=== PATIENT | male | born 1980 | race Caucasian/White ===

== ENCOUNTER → 2021-04-24 | Outpatient (CLI) | payer OTHER ==
[~2021-04-24] MED LIST: NONE PER PT
== END | disposition home or self-care (01) ==
LOC: STAR 14:51
PROVIDERS: ATTEND Surgery
DX: Z20.822 Contact with and (suspected) exposure to COVID-19 (principal); K40.90 Unilateral inguinal hernia, without obstruction or gangrene, not specified as recurrent
CPT/HCPCS: U0003; U0005

== ENCOUNTER 2021-04-30 09:20 | Day surgery (SDC) | payer OTHER ==
[~2021-04-30] VITALS: Ht 193 cm; Wt 120.6 kg
[~2021-04-30 09:20] MED LIST changes: +BUPIVACAINE/PF 0.5% ONE; +EPINEPHRINE 1 MG/ML, 1ML ONE
[2021-04-30] MEDS ORDERED: no home meds per pt (09:43)
[2021-04-30 09:45] VITALS: BP 145/91
[2021-04-30] MEDS ORDERED: CHLORHEXIDINE 15 ML UDC ONE (09:46)
[2021-04-30] MEDS ORDERED: CHLORHEXIDINE 15 ML UDC PO ONE (10:00)
[2021-04-30] MEDS ORDERED: LACTATED RINGERS 1,000 ML IV SCH (10:00)
[2021-04-30] MEDS ORDERED: MIDAZOLAM 1 MG/ML, 2ML ONE (10:32)
[2021-04-30] MEDS ORDERED: FENTANYL PF 250 MCG/5ML ONE (10:33)
[2021-04-30] MEDS ORDERED: SUGAMMADEX 200 MG/2 ML IVPush ONE (10:36)
[2021-04-30] MEDS ORDERED: PROPOFOL 10 MG/ML, 20ML ONE (11:41)
[2021-04-30] MEDS ORDERED: ROCURONIUM 10 MG/ML,10ML ONE (11:41)
[2021-04-30] MEDS ORDERED: DEXAMETHASONE 4 MG/ML, 1ML ONE (11:41)
[2021-04-30] MEDS ORDERED: ONDANSETRON 2MG/ML, 2ML ONE (11:41)
[2021-04-30] MEDS ORDERED: KETOROLAC 30 MG/1 ML ONE (11:41)
[2021-04-30] MEDS ORDERED: GLYCOPYRROLATE 0.2MG/1ML, 5ML ONE (11:41)
[2021-04-30] MEDS ORDERED: CEFAZOLIN 1,000 MG ONE (11:41)
[2021-04-30] MEDS ORDERED: NEOSTIGMINE 1 MG/ML, 10ML ONE (11:41)
[2021-04-30] MEDS ORDERED: MIDAZOLAM 1 MG/ML, 2ML IV PRN (12:30)
[2021-04-30] MEDS ORDERED: LABETALOL 5MG/ML, 20ML IV PRN (12:30)
[2021-04-30] MEDS ORDERED: PROMETHAZINE 25 MG/ML, 1ML IVPush PRN (12:30)
[2021-04-30] MEDS ORDERED: HYDROmorphone 1 MG/ML, 1ML INJ IVPush PRN (12:30)
[2021-04-30] MEDS ORDERED: FENTANYL PF 100 MCG/2ML IV PRN (12:30)
[2021-04-30] MEDS ORDERED: MEPERIDINE/PF 25MG/0.5ML IVPush PRN (12:30)
[2021-04-30] MEDS ORDERED: OXYcodone 5 MG/5 ML ORAL.SOL UDC PO PRN (12:30)
[2021-04-30] MEDS ORDERED: ALBUTEROL SULFATE 2.5 MG/3 ML NPPB PRN (12:30)
[2021-04-30] MEDS ORDERED: ACETAMINOPHEN 325 MG TABLET PO PRN (12:30)
[2021-04-30] MEDS ORDERED: METHOCARBAMOL 1,000 MG in DEXTROSE 5% 100 ML IV PRN (12:30)
[2021-04-30] MEDS ORDERED: OXYC-302 PO (12:54)
== END 2021-04-30 18:45 | disposition home or self-care (01) ==
LOC: OUT 09:20
PROVIDERS: ATTEND Surgery
DX: K40.30 Unilateral inguinal hernia, with obstruction, without gangrene, not specified as recurrent (principal)
CPT/HCPCS: 49650; C1781; J0171; J0690; J1100; J1885; J2250; J2405; J2704; J2710; J3010; J7120; S2900